=== PATIENT | female | born 1990 | race Caucasian/White ===

== ENCOUNTER 2017-02-17 11:51 | Emergency (ER) | payer OTHER ==
[~2017-02-17] VITALS: Ht 185.4 cm; Wt 130.0 kg
[~2017-02-17 11:51] MED LIST: CLIN1CAP5 PO; LORTA5 PO
[2017-02-17 12:01] VITALS: BP 135/85; PULSE 74; RESP 20; TEMP 98.9; O2SAT 98
[2017-02-17 12:10] VITALS: RESP 18; O2SAT 98
[2017-02-17] MEDS ORDERED: SODIUM CHLORIDE 0.9% FLUSH 10 ML FLUSH IVF PRN (12:15)
[2017-02-17] MEDS ORDERED: ONDANSETRON HCL 4 MG/2 ML VIAL IV PUSH ONE (12:15)
[2017-02-17] MEDS ORDERED: MORPHINE SULFATE 4 MG/ML INJ IV PUSH ONE (12:15)
[2017-02-17 12:20] LABS: AUTOMATED NEUTROPHIL # 7.1 TH/MM3 (1.8-7.7); BASOPHIL # 0.1 TH/MM3 (0-0.2); BASOPHIL % 0.5 % (0.0-2.0); EOSINOPHIL # 0.2 TH/MM3 (0-0.4); EOSINOPHIL % 1.4 % (0.0-4.0); HEMATOCRIT 42.6 % (35.0-46.0); HEMO FLAGS DIFF FINAL; LYMPH % 26.7 % (9.0-44.0); MEAN CORPUSCULAR HEMOGLOBIN 29.3 PG (27.0-34.0); MEAN CORPUSCULAR HGB CONC 34.1 % (32.0-36.0); MONO % 7.7 % (0.0-8.0); NEUT % 63.7 % (16.0-70.0); PLATELET COUNT 284 TH/MM3 (150-450); RED BLOOD COUNT 4.96 MIL/MM3 (4.00-5.30); RED CELL DISTRIBUTION WIDTH 13.5 % (11.6-17.2); WHITE BLOOD COUNT 11.1 TH/MM3 (4.0-11.0)
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
[2017-02-17 12:31] LABS: APTT (PATIENT) 26.8 SEC (24.3-30.1); PROTHROMBIN TIME - PATIENT 10.9 SEC (9.8-11.6)
[2017-02-17 12:37] LABS: POTASSIUM 4.1 MEQ/L (3.5-5.1)
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
[2017-02-17] MEDS ORDERED: CODE30TA2 PO (14:28)
[2017-02-17] MEDS ORDERED: CYCL1TAB29 PO (14:28)
[2017-02-17 14:50] VITALS: BP 140/76; PULSE 80; RESP 20; O2SAT 100
== END 2017-02-17 18:49 | disposition home or self-care (01) ==
LOC: NEPC 11:51
DX: S80.212A Abrasion, left knee, initial encounter (principal); S50.312A Abrasion of left elbow, initial encounter; T14.8XXA Other injury of unspecified body region, initial encounter; R07.9 Chest pain, unspecified; V89.2XXA Person injured in unspecified motor-vehicle accident, traffic, initial encounter
CPT/HCPCS: 70450; 71010; 72125; 72170; 73080; 73564; 80048; 84703; 85025; 85610; 85730; 86850; 86900; 86901; 96374; 96375; 99285; J2270; J2405